=== PATIENT | male | born 1935 | race Caucasian/White ===

== ENCOUNTER 2017-09-15 04:04 | Emergency (ER) | payer OTHER, SELFPAY | END 2017-09-15 06:02 | disposition home or self-care (01) | PROVIDERS: Emergency Provider Emergency Medicine; PCP Family Medicine; Visit Provider Emergency Medicine | DX: R31.9 Hematuria, unspecified (principal); T83.9XXA Unspecified complication of genitourinary prosthetic device, implant and graft, initial encounter | CPT/HCPCS: 36415; 51702; 51798; 85025; 99058; 99284 ==